=== PATIENT | male | born 1960 | race American Indian/Alaskan Native ===

== ENCOUNTER 2021-10-22 11:53 | Emergency (ER) | payer SELFPAY ==
[2021-10-22 12:49] VITALS: BP 133/91
--- NOTE | 2021-10-22 13:15 | XRay Report ---
XR chest routine 2V INDICATION / CLINICAL INFORMATION: chest pain COMPARISON: None available. FINDINGS: SUPPORT DEVICES: None. HEART / MEDIASTINUM: Prior median sternotomy. No significant abnormality. LUNGS / PLEURA: Right costophrenic sulcus is blunted. Hazy right lower lobe opacity, likely effusion and/or associated atelectasis/scarring. Otherwise lungs are clear. No pneumothorax. ADDITIONAL FINDINGS: No significant additional findings. IMPRESSION: 1. Moderate right pleural effusion. Signer Name: Naveen Resendiz MD Signed: 10/22/2021 1:11 PM Workstation Name: [email or web address]
[2021-10-22 14:12] LABS: Basophils % (Auto) 0.3 % (0.0-1.8); Eosinophils % (Auto) 0.2 % (0.0-4.3); Hematocrit 31.1 % (35.5-45.6); Hemoglobin 9.9 gm/dl (11.8-15.2); Lymphocytes # (Auto) 0.9 K/mm3 (1.2-5.4); Lymphocytes % (Auto) 10.3 % (13.4-35.0); Mean Corpuscular HGB Conc 32 % (32-34); Mean Corpuscular Volume 81 fl (84-94); Monocytes # (Auto) 0.7 K/mm3 (0.0-0.8); Monocytes % (Auto) 8.6 % (0.0-7.3); Platelet Count 305 K/mm3 (140-440); Red Blood Count 3.82 M/mm3 (3.65-5.03); Red Cell Distribution Width 18.8 % (13.2-15.2)
[2021-10-22 14:40] LABS: Alanine Aminotransferase 8 units/L (7-56); Albumin 4.5 g/dL (3.9-5); BUN/Creatinine Ratio 8; Blood Urea Nitrogen 9 mg/dL (9-20); Calcium 9.3 mg/dL (8.4-10.2); Hemolysis Index 3
--- NOTE | 2021-10-23 09:06 | Electrocardiograph Report ---
[facility] Test Date: 2021-10-22 Test Time: 12:56:05 Pat Name: DARRYL ISLAS Department: Room: Gender: M Health And Wellness Coordinator: ABDOULAYE : 1960 Requested By: ED DOC Order Number: [id number] Reading MD: Manuel Amezquita Measurements Intervals [place] Rate: 79 P: 67 MI: 133 QRS: 6 QRSD: 78 T: 59 QT: 401 QTc: 460 Interpretive Statements Sinus rhythm No previous ECG available for comparison Electronically Signed On 10-23-2021 9:05:59 EDT by Manuel Amezquita
== END 2021-10-22 23:27 | disposition left against medical advice (07) ==
LOC: ED 11:53
DX: R07.89 Other chest pain (principal); Z53.21 Procedure and treatment not carried out due to patient leaving prior to being seen by health care provider
CPT/HCPCS: 36415; 71046; 80053; 84484; 85025; 93005